=== PATIENT | female | born 1990 | race African-American/Black ===

== ENCOUNTER 2021-09-08 09:40 | Outpatient (CLI) | payer OTHER ==
[2021-09-08 22:07] LABS: SARS-CoV-2 PCR by NAA Not Detected (NotDetected)
== END 2021-09-08 09:41 | disposition home or self-care (01) ==
LOC: CSHLAB 09:40
PROVIDERS: ATTEND Surgery
DX: Z20.822 Contact with and (suspected) exposure to COVID-19 (principal)
CPT/HCPCS: U0003; U0005